=== PATIENT | male | born 1960 | race Two or more races ===

== ENCOUNTER 2020-08-23 13:08 | Outpatient (CLI) | payer OTHER ==
[~2020-08-23 13:08] MED LIST: DICLOFENAC POTA50 MG PO; METHOCARBAMOL500 MG PO; NAPROXEN500 MG PO
== END 2020-08-23 14:00 | disposition home or self-care (01) ==
LOC: MRI 13:08
PROVIDERS: ATTEND Physical Medicine & Rehabilitation
DX: M25.512 Pain in left shoulder (principal)
CPT/HCPCS: 73221